=== PATIENT | female | born 1990 | race Two or more races ===

== ENCOUNTER 2021-04-15 03:48 | Inpatient (IN) ==
[2021-04-15] MEDS ORDERED: Buffered Lidocaine 1% SYRIN 1 ml INTRADERM ONE (04:20)
[2021-04-15] MEDS ORDERED: Lactated Ringers 1000 ml BAG 1,000 ML IV ONE ×2 (04:20→16:31)
[2021-04-15] MEDS ORDERED: Nalbuphine 10 MG/ML 1 ML VIAL IV ONE (04:44)
[2021-04-15] MEDS ORDERED: Promethazine INJ(RESTRICTED) 25 MG/ML 1 ml VIAL IV ONE (04:45)
[2021-04-15] MEDS ORDERED: Lactated Ringers 1000 ml BAG 1,000 ML IV SCH ×3 (05:00→17:00)
[2021-04-15 05:49] LABS: Rapid COVID-19 Molecular Undetected (Undetected)
[2021-04-15 05:55] LABS: Urine Benzodiazepine Screen None Detected (None Detect); Urine Cannabinoids Screen None Detected (None Detect); Urine Opiates Screen None Detected (None Detect)
[2021-04-15 06:06] LABS: Hematocrit 38 % (35-47); Hemoglobin 13.3 g/dL (12.0-16.0); Mean Corpuscular HGB Conc 35 g/dL (31-36); Mean Corpuscular Hemoglobin 34 pg (27-31); Mean Corpuscular Volume 95 fL (80-97); Mean Platelet Volume 11.5 fL (7.4-10.4); Platelet Count 139 10^3/uL (150-450); Red Blood Count 3.95 10^6 /uL (3.70-4.87); Red Cell Distribution Width 13 % (10-15); White Blood Count 9.3 10^3/uL (3.5-10.8)
[2021-04-15 06:21] LABS: ABS Eosinophils 0.1 10^3/ul (0-0.6); ABS Lymphocytes 1.4 10^3/ul (1.0-4.8); ABS Monocytes 0.6 10^3/ul (0-0.8); ABS Neutrophils 7.2 10^3/ul (1.5-7.7); Eosinophil % 0.6 %; Lymphocyte % 15.3 %; Nucleated Red Blood Cells % 0.1
[2021-04-15] MEDS ORDERED: Promethazine INJ(RESTRICTED) 25 MG/ML 1 ml VIAL IV PRN (10:46)
[2021-04-15] MEDS ORDERED: Nalbuphine 10 MG/ML 1 ML VIAL IV PRN (10:46)
[2021-04-15] MEDS ORDERED: OBEPIDURAL 250 ML EPIDURAL ONE (13:15)
[2021-04-15 16:20] LABS: Urine Appearance Clear; Urine Bilirubin Negative (Negative); Urine Blood 3+ (Negative); Urine Color Straw; Urine Glucose Negative (Negative); Urine Ketones Negative (Negative); Urine Nitrite Negative (Negative); Urine Protein Negative (Negative); Urine Specific Gravity 1.004 (1.002-1.030); Urine Urobilinogen Negative (Negative)
[2021-04-15 16:26] LABS: Urine Bacteria Absent (Absent); Urine Red Blood Cell 2+(6-10/hpf) (Absent); Urine Squamous Epithelial Cell Present (Absent); Urine White Blood Cell Absent (Absent)
[2021-04-15] MEDS ORDERED: Lactated Ringers 1000 ml BAG 500 ML IV PRN ×2 (16:31)
[2021-04-15] MEDS ORDERED: Phenylephrine 40 mcg/mL 10mL (400mcg) SYRINGE IV PUSH PRN ×2 (16:31)
[2021-04-15] MEDS ORDERED: Sodium Citrate/Citric Acid LIQ 15 ML UDC PO PRN (16:31)
[2021-04-16] MEDS ORDERED: Lidocaine 1% VIAL 10 MG/ML VIAL ONE (02:31)
[2021-04-16] MEDS ORDERED: ceFOXitin 2 GM IVPREMIX 2 GM/50 ML BAG ONE (03:57)
[2021-04-16] MEDS ORDERED: fentaNYL 100 mcg/2 ml 50 MCG/ML VIAL ONE (04:05)
[2021-04-16] MEDS ORDERED: Morphine PF AMP (0.5MG/ML) 5 MG/10 ML AMP ONE (04:05)
[2021-04-16] MEDS ORDERED: Phenylephrine 40 mcg/mL 10mL (400mcg) SYRINGE ONE (04:27)
[2021-04-16] MEDS ORDERED: Oxytocin 10 UNITS/ML 1 ML VIAL ONE (04:41)
[2021-04-16] MEDS ORDERED: Naloxone 0.4 mg VIAL 0.4 mg/ml 1 ml VIAL IV PRN ×2 (04:57→04:59)
[2021-04-16] MEDS ORDERED: fentaNYL 100 mcg/2 ml 50 MCG/ML VIAL IV PRN (04:57)
[2021-04-16] MEDS ORDERED: Ondansetron 4 mg VIAL 2 MG/ML 2 ml VIAL IV PRN ×2 (04:57→04:59)
[2021-04-16] MEDS ORDERED: Acetaminophen IV 1 GM/100 ML BAG IV ONE (04:57)
[2021-04-16] MEDS ORDERED: Naloxone 4 mg VIAL (10 ml) 2 MG in NS 0.9% 250 ml 250 ML IV PRN (04:59)
[2021-04-16] MEDS ORDERED: Metoclopramide 5 MG/ML VIAL (10 mg) IV PRN (04:59)
[2021-04-16] MEDS ORDERED: Glycerin ADULT 2.4 gm SUPP PR PRN (05:23)
[2021-04-16] MEDS ORDERED: Dibucaine 1% OINT 28.35 GM TUBE PR PRN (05:23)
[2021-04-16] MEDS ORDERED: Witch Hazel PAD JAR TOPICAL PRN (05:23)
[2021-04-16] MEDS ORDERED: Oxytocin in LR 20 UNITS/1,000 ML BAG IVPB SCH (06:00)
[2021-04-16] MEDS ORDERED: Lactated Ringers 1000 ml BAG 1,000 ML IV SCH (06:00)
[2021-04-17 07:29] LABS: ABS Eosinophils 0.1 10^3/ul (0-0.6); ABS Lymphocytes 1.3 10^3/ul (1.0-4.8); ABS Monocytes 0.7 10^3/ul (0-0.8); ABS Neutrophils 8.3 10^3/ul (1.5-7.7); Eosinophil % 0.6 %; Hematocrit 31 % (35-47); Hemoglobin 10.5 g/dL (12.0-16.0); Lymphocyte % 12.8 %; Mean Corpuscular HGB Conc 34 g/dL (31-36); Mean Corpuscular Hemoglobin 33 pg (27-31); Mean Corpuscular Volume 96 fL (80-97); Mean Platelet Volume 10.8 fL (7.4-10.4); Platelet Count 104 10^3/uL (150-450); Red Blood Count 3.17 10^6 /uL (3.70-4.87); Red Cell Distribution Width 13 % (10-15); White Blood Count 10.4 10^3/uL (3.5-10.8)
[2021-04-17] MEDS: OBEPIDURAL 250 ML EPIDURAL SCH (07:55)
[2021-04-18 08:44] VITALS: BP 117/72
== END 2021-04-18 13:54 | disposition home or self-care (01) | DRG 540 ==
LOC: MCHOBOUT 03:48 → MCHOB 04:31
PROVIDERS: ADMIT Midwife; ATTEND Obstetrics & Gynecology